=== PATIENT | male | born 1995 | race Hispanic/Latino ===

== ENCOUNTER 2018-12-25 11:36 | Emergency (ER) | payer SELFPAY ==
[2018-12-25 12:17] LABS: Absolute Lymphocytes (CBC) 2.2 K/uL (0.7-4.9); Basophils % 0.7 % (0-1.3); Hematocrit 46.7 % (39.6-49.0); Lymphocytes % 34.5 % (15.3-44.8); MPV 8.7 fL (7.6-11.3); RBC Red Blood Cell Count 5.42 M/uL (4.33-5.43)
--- NOTE | 2018-12-25 12:17 | RAD REPORT ---
EXAM DESCRIPTION: RAD - Chest Single View - 12/25/2018 12:12 pm CLINICAL HISTORY: sob, chest pain, presyncope Chest pain. COMPARISON: No comparisons FINDINGS: Portable technique limits examination quality. The lungs are grossly clear. The heart is normal in size. No displaced fractures. IMPRESSION: No acute intrathoracic process suspected.
[2018-12-25 12:29] LABS: Protime INR 0.97
[2018-12-25 12:36] LABS: ALT/SGPT 43 U/L (12-78); AST/SGOT 29 U/L (15-37); Albumin 4.2 g/dL (3.4-5.0); Alkaline Phosphatase 126 U/L (45-117); BUN Blood Urea Nitrogen 8 mg/dL (7-18); Bicarbonate 27 mmol/L (21-32); Bilirubin Direct 0.1 mg/dL (0-0.2); Bilirubin Total 0.4 mg/dL (0.2-1.0); Glucose Level 97 mg/dL (74-106); Magnesium 2.2 mg/dL (1.8-2.4); NT PRO-BNP 39 pg/mL (<125); Potassium 3.8 mmol/L (3.5-5.1); Protein, Total 7.7 g/dL (6.4-8.2); Sodium Level 141 mmol/L (136-145); Troponin (Emerg Dept Use Only) < 0.02 ng/mL (0.0-0.045)
--- NOTE | 2018-12-25 12:52 | ER ---
Nurse's Notes [facility] Name: Castro Gallo Age: 23 yrs Sex: Male : 1995 Arrival Date: 12/25/2018 Time: 11:41 Bed 8 Private MD: Diagnosis: Chest pain, unspecified;Syncope and collapse Presentation: 12/25 11:41 Presenting complaint: Patient states: I work installing insulation and for the past few la1 weeks when I stand up I get light headed and see little white dots. I have been working seven days a week twelve hours for the last 3 months. Transition of care: patient was not received from another setting of care. Onset of symptoms was December 25, 2018. Risk Assessment: Do you want to hurt yourself or someone else? Patient reports no desire to harm self or others. Initial Sepsis Screen: Does the patient meet any 2 criteria? No. Patient's initial sepsis screen is negative. Does the patient have a suspected source of infection? No. Patient's initial sepsis screen is negative. Care prior to arrival: None. 11:41 Method Of Arrival: Ambulatory la1 11:41 Acuity: RASHARD 3 la1 Historical: - Allergies: 11:43 No Known Allergies; la1 - PMHx: 11:43 None; la1 - Immunization history:: Adult Immunizations up to date. - Social history:: Smoking status: Patient/guardian denies using tobacco. - Ebola Screening: : No symptoms or risks identified at this time. Screenin:17 Abuse screen: Denies threats or abuse. Denies injuries from another. Nutritional mg2 screening: No deficits noted. Tuberculosis screening: Fall Risk IV access (20 points). Assessment: 12:16 General: Appears in no apparent distress. comfortable, Behavior is calm, cooperative. mg2 Pain: Denies pain. Neuro: Level of Consciousness is awake, alert, obeys commands, Oriented to person, place, time, situation. Cardiovascular: Capillary refill < 3 seconds Patient's skin is warm and dry. Respiratory: Airway is patent Respiratory effort is even, unlabored, Respiratory pattern is regular, symmetrical. GI: No signs and/or symptoms were reported involving the gastrointestinal system. : No signs and/or symptoms were reported regarding the genitourinary system. EENT: No signs and/or symptoms were reported regarding the EENT system. Derm: Skin is intact, is healthy with good turgor, Skin is pink, warm \T\ dry. normal. Musculoskeletal: Circulation, motion, and sensation intact. Capillary refill < 3 seconds. 12:17 Neuro: Reports near syncopal attack . mg2 13:02 Reassessment: Patient states feeling better. mg2 Vital Signs: 11:42 BP 123 / 95; Pulse 73; Resp 16; Temp 97.6; Pulse Ox 98% on R/A; Weight 103.87 kg; la1 Height 5 ft. 5 in. (165.10 cm); 13:01 BP 125 / 78; Pulse 75; Resp 18; Temp 98; Pulse Ox 100% on R/A; Pain 0/10; mg2 11:42 Body Mass Index 38.11 (103.87 kg, 165.10 cm) la1 ED Course: 11:41 Patient arrived in ED. la1 11:42 Patrick Jaime PA is PHCP. [facility] 11:42 Rodney Smith MD is Attending Physician. [facility] 11:42 Triage completed. la1 11:43 Arm band placed on left wrist. la1 11:55 EKG done, by solar panel technician. reviewed by Patrick ANTHONY. vh 12:00 Initial lab(s) drawn, by ms, sent to lab. Inserted saline lock: 20 gauge in right iw antecubital area, using aseptic technique. Blood collected. 12:12 X-ray completed. Portable x-ray completed in exam room. Patient tolerated procedure jb2 well. 12:12 Gem Reyna, RN is Primary Nurse. jl7 12:15 XRAY Chest (1 view) In Process Unspecified. EDMS 12:15 Dima Adler, ESTELITA is Primary Nurse. mg2 12:17 Patient has correct armband on for positive identification. library monitor on. Pulse mg2 ox on. NIBP on. Door closed. 12:18 No provider procedures requiring assistance completed. mg2 13:02 IV discontinued, intact, bleeding controlled, No redness/swelling at site. Pressure mg2 dressing applied. Administered Medications: No medications were administered Outcome: 12:51 Discharge ordered by . [facility] 13:02 Discharged to home ambulatory. mg2 13:02 Condition: stable 13:02 Discharge instructions given to patient, Instructed on discharge instructions, follow up and referral plans. Demonstrated understanding of instructions, follow-up care. 13:02 Patient left the ED. mg2 Signatures: Dispatcher [employer] EDMS Patrick Jaime PA PA jmm Buechter, Jesse jb2 Williams, Irene, RN RN iw Hermes Almazan RN RN la1 Alley Madison Jahala, RN RN jl7 Dima Adler RN RN mg2
--- NOTE | 2018-12-25 12:52 | EDPHYS ---
Physician Documentation [facility] Name: Castro Gallo Age: 23 yrs Sex: Male : 1995 Arrival Date: 12/25/2018 Time: 11:41 Bed 8 Private MD: ED Physician Rodney Smith HPI: 12/25 11:47 This 23 yrs old Male presents to ER via Ambulatory with complaints of Near jmm Syncope. 11:47 The patient has experienced near-syncope. Onset: The symptoms/episode began/occurred jmm gradually, 1 week(s) ago. Duration: The patient has had multiple episodes. Associated injury: The patient did not suffer any apparent associated injury. Associated signs and symptoms: Pertinent positives: chest pain, shortness of breath. This is a 23 year old male with no chronic medical conditions that presents to the ED with complaints of weakness, shortness of breath, near syncope. Patient states he has been working 12 hour shifts over the past week with occasional chest pain and shortness of breath. Patient states upon standing he becomes lightheaded. Denies passing out. Patient drives from [place] for work regularly. Denies swelling to his legs or hemoptysis. . Historical: - Allergies: 11:43 No Known Allergies; la1 - PMHx: 11:43 None; la1 - Immunization history:: Adult Immunizations up to date. - Social history:: Smoking status: Patient/guardian denies using tobacco. - Ebola Screening: : No symptoms or risks identified at this time. ROS: 11:47 Constitutional: Negative for fever, chills, and weight loss. jmm 11:47 Abdomen/GI: Negative for abdominal pain, nausea, vomiting, diarrhea, and constipation. 11:47 Cardiovascular: Positive for chest pain. 11:47 Respiratory: Positive for shortness of breath. 11:47 Neuro: Positive for near syncope. 11:47 All other systems are negative. Exam: 11:47 Constitutional: This is a well developed, well nourished patient who is awake, alert, jmm and in no acute distress. Head/Face: atraumatic. Eyes: EOMI, no conjunctival erythema appreciated ENT: Moist Mucus Membranes Neck: Trachea midline, Supple Chest/axilla: Normal chest wall appearance and motion. Cardiovascular: Regular rate and rhythm. No edema appreciated Respiratory: Normal respirations, no respiratory distress appreciated Abdomen/GI: Non distended, soft Back: Normal ROM Skin: General appearance color normal MS/ Extremity: Moves all extremities, no obvious deformities appreciated, no edema noted to the lower extremities Neuro: Awake and alert, normal gait Psych: Behavior is normal, Mood is normal, Patient is cooperative and pleasant 12:39 ECG was reviewed by the Attending Physician. [facility] Vital Signs: 11:42 BP 123 / 95; Pulse 73; Resp 16; Temp 97.6; Pulse Ox 98% on R/A; Weight 103.87 kg; la1 Height 5 ft. 5 in. (165.10 cm); 13:01 BP 125 / 78; Pulse 75; Resp 18; Temp 98; Pulse Ox 100% on R/A; Pain 0/10; mg2 11:42 Body Mass Index 38.11 (103.87 kg, 165.10 cm) la1 MDM: 11:47 Patient medically screened. [facility] 12:50 Data reviewed: vital signs, nurses notes. Counseling: I had a detailed discussion with [facility] the patient and/or guardian regarding: the historical points, exam findings, and any diagnostic results supporting the discharge/admit diagnosis, lab results, radiology results, the need for outpatient follow up, to return to the emergency department if symptoms worsen or persist or if there are any questions or concerns that arise at home. 12:50 ED course: Patient is alert and non toxic in appearance in the ED. Labs unremarkable. [facility] Patient advised to increased fluid intake and follow up with pcp for reevaluation. Patient is otherwise given strict return precautions. patient understood and agrees with the plan of care. . 12/25 11:54 Order name: Basic Metabolic Panel; Complete Time: 12:39 [facility] 12/25 11:54 Order name: CBC with Diff; Complete Time: 12:23 [facility] 12/25 11:54 Order name: LFT's; Complete Time: 12:39 [facility] 12/25 11:54 Order name: Magnesium; Complete Time: 12:39 [facility] 12/25 11:54 Order name: NT PRO-BNP; Complete Time: 12:39 [facility] 12/25 11:54 Order name: PT-INR; Complete Time: 12:39 [facility] 12/25 11:54 Order name: Troponin (emerg Dept Use Only); Complete Time: 12:39 [facility] 12/25 11:54 Order name: XRAY Chest (1 view); Complete Time: 12:23 [facility] 12/25 11:54 Order name: EKG; Complete Time: 11:55 [facility] 12/25 11:54 Order name: Cardiac monitoring; Complete Time: 12:16 [facility] 12/25 11:54 Order name: EKG - Nurse/Tech; Complete Time: 12:16 [facility] 12/25 11:54 Order name: IV Saline Lock; Complete Time: 12:16 [facility] 12/25 11:54 Order name: Labs collected and sent; Complete Time: 12:16 [facility] 12/25 11:54 Order name: D-Dimer; Complete Time: 12:39 [facility] 12/25 11:54 Order name: O2 Per Protocol; Complete Time: 12: [facility] 12/25 11:54 Order name: O2 Sat Monitoring; Complete Time: 12: EC:39 Rate is 50 beats/min. Rhythm is regular. QRS [place] is Normal. MI interval is normal. QRS jmm interval is normal. QT interval is normal. No Q waves. T waves are Normal. No ST changes noted. Reviewed by me. Administered Medications: No medications were administered Disposition: 18:09 Co-signature as Attending Physician, Rodney Smith MD. rn Disposition: 12/25/18 12:51 Discharged to Home. Impression: Chest pain, unspecified, Syncope and collapse. - Condition is Stable. - Discharge Instructions: Nonspecific Chest Pain, Syncope. - Work release form, Medication Reconciliation Form, Thank You Letter, Antibiotic Education, Prescription Opioid Use form. - Follow up: Private Physician; When: 2 - 3 days; Reason: Recheck today's complaints, Continuance of care, Re-evaluation by your physician. Signatures: Dispatcher [employer] EDMS Patrick Jaime PA PA [facility] Rodney Smith MD MD rn Attema, Lee, RN RN la1 Dima Adler RN RN mg2 Corrections: (The following items were deleted from the chart) 13:02 12:51 12/25/2018 12:51 Discharged to Home. Impression: Chest pain, unspecified; Syncope mg2 and collapse. Condition is Stable. Forms are Medication Reconciliation Form, Thank You Letter, Antibiotic Education, Prescription Opioid Use. Follow up: Private Physician; When: 2 - 3 days; Reason: Recheck today's complaints, Continuance of care, Re-evaluation by your physician. jeannette
--- NOTE | 2018-12-26 09:11 | EKG ---
Test Date: 2018-12-25 Test Time: 12:21:08 Retail Analytics Manager: JOÃO MEASUREMENT RESULTS: Intervals: Rate: 50 OR: 146 QRSD: 82 QT: 392 QTc: 357 Dawson: P: 30 OR: 146 QRS: 53 T: 33 INTERPRETIVE STATEMENTS: Sinus bradycardia with sinus arrhythmia Otherwise normal ECG No previous ECG available for comparison Electronically Signed On 12-26-18 09:08:22 CDT by [place] Wilhelm
== END 2018-12-25 13:02 | disposition home or self-care (01) ==
LOC: ER 11:36
DX: R07.9 Chest pain, unspecified (principal)
CPT/HCPCS: 36415; 71045; 80048; 80076; 83735; 83880; 84484; 85025; 85379; 85610; 93005; 99284